=== PATIENT | male | born 1945 | race Caucasian/White ===

== ENCOUNTER 2016-12-01 06:27 | Day surgery (SDC) | payer MEDICARE, BC, OTHER ==
[2016-11-25 10:32] VITALS: BMI 23.1
[~2016-12-01 06:27] MED LIST: LACTATED RINGERS 1,000 ML IV SCH
[2016-12-01] MEDS ORDERED: LIDOCAINE 1% 20 ML VIAL (10MG/ML) FOR IV START SQ ONE (06:38)
[2016-12-01] MEDS: CYCLOPENTOLATE 1% OPHTH SOLN 2 ML BTL OP ONE ×3 (06:43→07:08)
[2016-12-01 06:45] VITALS: RESP 16; TEMP 98.5
[2016-12-01] MEDS: FLURBIPROFEN 0.03% OPHTH DROPS 2.5 ML BTL OP ONE ×3 (06:48→07:10)
[2016-12-01] MEDS: PHENYLEPHRINE 10% OPHTH DROPS 5 ML BTL OP ONE ×3 (06:57→07:12)
[2016-12-01] MEDS ORDERED: LIDOCAINE 1% INJ 10MG/ML (20 ML MDV) ONE (07:46)
[2016-12-01] MEDS ORDERED: PROPOFOL 10 MG/ML 20 ML VIAL IV ONE (07:46)
[2016-12-01] MEDS ORDERED: BALANCED SALT IRRIG SOLN COMB2 15 ML IRRIG.SOLN INTRAOCULA ONE (07:52)
[2016-12-01] MEDS ORDERED: HYALURONATE SODIUM INTRAOCULAR 1 EACH SYRINGE (10MG/ML) INTRAOCULA ONE (07:52)
[2016-12-01] MEDS ORDERED: TETRACAINE 0.5% OPHTH (PF) DROPS 4 ML BTL RIGHT EYE ONE (07:53)
[2016-12-01] MEDS ORDERED: EPINEPHrine (PF) 0.5 ML in BALANCED SALT IRRIG SOLN COMB2 500 ML IRRIGATION ONE (07:54)
--- NOTE | 2016-12-01 08:18 | P.OP ---
Date of Procedure: 12/01/16 Procedure(s) Performed: PREOPERATIVE DIAGNOSIS: Cataract, right eye. POSTOPERATIVE DIAGNOSIS: Cataract, right eye. OPERATION: Phacoemulsification cataract, right eye. DESCRIPTION OF PROCEDURE: The patient was taken to the preoperative holding area. Intravenous Propofol was given so as to bring about adequate sedation. The following mixture was given for local anesthesia: 5 mL of 2% lidocaine, 5 mL of 0.75% Marcaine, and 1 mL of Wydase. Approximately 4 mL was injected in the retrobulbar space of the surgical eye. Additional 1 mL was then directed to the temporal area of the surgical eye. This was performed to allow adequate neurological block of the facial muscles. The patient was revived and then taken into the operative room. The patient was prepped and draped in the usual sterile manner for the operative eye. A lid speculum was put into position. The conjunctiva was resected back from the limbus in the 12 o'clock position. Bleeding was controlled with electrocautery. A #69 blade was then used and a half-thickness scleral incision approximately 1-mm posterior to the limbus was made on bare sclera. This was shelved in the clear cornea using a crescent knife. The steep axis of astigmatism was marked using a pre-inked corneal marking device. Next a 15-degree blade was used to make a stab incision at the 3 o'clock position at the corneolimbal interface. Keratome blade was then used and the superior wound was extended into the anterior chamber. Viscoelastic was injected into the anterior chamber and to maintain its form. Next, a cystotome was used and a continuous anterior capsulotomy was made without difficulty. Hydrodissection using a blunt cannula and BSS was performed. Phaco probe was then employed and a groove extending from 12 to 6 o' clock in the lens was created. A Ranjit wand was used through the stab incision so as to perform a divide and conquer technique. Next an irrigation aspiration probe was utilized and any residual cortex was removed from the eye. Again, viscoelastic was injected into the anterior chamber. An Abbe toric posterior chamber lens implant was placed in the cartridge and injected into the anterior chamber without difficulty. The Sinskey hook was utilized to spin the lens into position and this was again performed without any difficulty. The irrigation and aspiration probe was again employed and any residual viscoelastic was removed from the eye. Then BSS was injected into the limbal stab incision and the anterior chamber re-inflated. The conjunctiva was reapproximated using electrocautery. One drop of 0.25% Timoptic was placed over the corneal along with TobraDex ophthalmic ointment. Two sterile patches and a Bach eye shield were taped into position. The patient was transported to the recovery room in stable condition. Pathology: none sent Condition: stable Disposition: same day
[2016-12-01 08:45] VITALS: BP 131/79; PULSE 70
[2016-12-01] MEDS ORDERED: BUPIVACAINE (PF) 0.75% 5 ML, LIDOCAINE 4% (PF) 5 ML, HYALURONIDASE, HUMAN RECOMB 150 UNIT MISCELLANE ONE ×3 (23:00)
[2016-12-01] MEDS ORDERED: TIMOLOL 0.5% OPHTH SOLN (PF) 0.2 ML DROPERETTE OP ONE (23:00)
[2016-12-01] MEDS ORDERED: GENTAMICIN/PREDNISOL AC OPHTH OINT 3.5GM OPHTHALMIC ONE (23:00)
== END 2016-12-01 08:56 | disposition home or self-care (01) ==
LOC: OR 06:27
PROVIDERS: ATTEND Ophthalmology
DX: H26.9 Unspecified cataract (principal); H52.201 Unspecified astigmatism, right eye; E78.5 Hyperlipidemia, unspecified; Z79.82 Long term (current) use of aspirin; Z79.899 Other long term (current) drug therapy
CPT/HCPCS: 66984; V2787; C1780; J2001 ×2; J3470; J0171; J2704; 99152; 99153

== ENCOUNTER → 2020-12-03 | Outpatient (CLI) | payer MEDICARE, BC | END | disposition home or self-care (01) | LOC: LABWHC1 12:01 | PROVIDERS: ATTEND Student in an Organized Health Care Education/Training Program | DX: Z20.822 Contact with and (suspected) exposure to COVID-19 (principal) | CPT/HCPCS: U0003; C9803 ==

== ENCOUNTER 2020-12-10 11:34 | Day surgery (SDC) | payer BC, MEDICARE, OTHER ==
[2020-12-09 10:31] VITALS: BMI 23.1
[~2020-12-10 11:34] MED LIST changes: +DEXAMETHASONE SOD PHOSPHATE 4 MG/ML 1 ML VIAL IV ONE; +HEPARIN SODIUM,PORCINE 5,000 UNIT/ML 1 ML VIAL SQ PRN; +MIDAZOLAM 2 MG/2 ML VIAL IV PRN; +ONDANSETRON 4 MG/2 ML VIAL IVP ONE
[2020-12-10] MEDS ORDERED: LACTATED RINGERS 1,000 ML IV ONE ×2 (12:30→15:58)
[2020-12-10] MEDS ORDERED: LIDOCAINE 1% (10MG/ML) FOR IV START INTRADERMA ONE (12:30)
[2020-12-10 12:33] LABS: HCT 45.7 % (39.0-53.0); HGB 15.6 gm/dL (13.0-17.5); MCH 30.5 pg (25.0-35.0); MCHC 34.1 g/dL (31.0-37.0); MCV 89.5 fL (80.0-100.0); Mean Platelet Volume 6.9; Platelet Count 217 k/uL (150-450); RDW 12.9 % (11.5-15.5); WBC 4.6 k/uL (3.8-10.6)
[2020-12-10] MEDS ORDERED: LIDOCAINE 1%-EPI 1:100,000 20 ML VIAL SQ ONE (13:34)
[2020-12-10] MEDS ORDERED: LIDOCAINE 1% INJ 10MG/ML (20 ML MDV) ONE (13:58)
[2020-12-10] MEDS ORDERED: HYDROmorphone (PF) 1 MG/ML ONE (13:58)
[2020-12-10] MEDS ORDERED: NEOSTIGMINE 1 MG/ML 10 ML VIAL ONE (13:58)
[2020-12-10] MEDS ORDERED: GLYCOPYRROLATE 0.2 MG/ML 2 ML VIAL ONE (13:58)
[2020-12-10] MEDS ORDERED: PROPOFOL 10 MG/ML 20 ML VIAL IV ONE (13:58)
[2020-12-10] MEDS ORDERED: ROCURONIUM 10 MG/ML (10 ML VIAL) IV ONE (13:58)
[2020-12-10] MEDS ORDERED: fentaNYL (PF) 50 MCG/ML 2 ML AMP ONE (13:58)
--- NOTE | 2020-12-10 15:05 | P.OP ---
Date of Procedure: 12/10/20 Preoperative Diagnosis: Left inguinal hernia Postoperative Diagnosis: Same Procedure(s) Performed: Robotic-assisted left inguinal hernia repair Anesthesia: ISHA Surgeon: Dutch Boles Estimated Blood Loss (ml): 5 Condition: stable Disposition: PACU Description of Procedure: Patient brought operative suite remained in supine position underwent general endotracheal anesthesia per Department of anesthesia prepped and draped usual sterile fashion timeout performed correct patient correct procedure correct site was verified a 1.5 ascending incision was made superior to the umbilicus carried down the fascia which was incised usual fashion abdomen was entered and insufflated no injuries were noted 8 mm ports are placed lateral to this on either side the robot was docked there was a left-sided defect noted there was no significant right-sided defect. The peritoneum was taken down medially to the pubis laterally and posteriorly to the psoas. The hernia defect was then reduced from the cord structures being sure to leave the cord structures intact. Procrit mesh was then placed having good coverage and the peritoneum was then reapproximated using 2-0 Vlock sutures. The suture removed The midline port fascia was then closed with 0 Vicryl with aid of a Cam-Arnulfo suture passer. All ports removed under direct visualization patient tolerated the procedure well skin was closed with 4-0 Monocryl subcuticular stitches and skin glue. Patient is brought to the PACU in stable condition Plan - Discharge Summary Discharge Rx Participant: Yes New Discharge Prescriptions: No Action Simvastatin [Zocor] 20 mg PO HS Multivitamins, Thera [Multivitamin (formulary)] 1 tab PO DAILY Immune Vitamin C Supplement 1 tab PO DAILY Discharge Medication List Simvastatin [Zocor] 20 mg PO HS 10/15/16 [History] Immune Vitamin C Supplement 1 tab PO DAILY 12/09/20 [History] Multivitamins, Thera [Multivitamin (formulary)] 1 tab PO DAILY 12/09/20 [History]
[2020-12-10 15:11] VITALS: TEMP 98
[2020-12-10] MEDS: HYDROmorphone 0.5 MG/0.5 ML SYRINGE IVP PRN ×2 (15:27→15:48)
[2020-12-10 17:08] VITALS: RESP 16
[2020-12-10 18:42] VITALS: BP 130/70; PULSE 90
== END 2020-12-10 19:03 | disposition home or self-care (01) ==
LOC: OR 11:34
PROVIDERS: ATTEND Student in an Organized Health Care Education/Training Program
DX: K40.90 Unilateral inguinal hernia, without obstruction or gangrene, not specified as recurrent (principal); E78.5 Hyperlipidemia, unspecified; Z98.890 Other specified postprocedural states; N42.9 Disorder of prostate, unspecified; Z79.899 Other long term (current) drug therapy
CPT/HCPCS: 86900; 86901; 85027; 86850; 49650; C1781; J1644; J1100; J2710; J0690; J2405; J2001; J3010; J1170 ×2; J2704